=== PATIENT | male | born 1995 | race Caucasian/White ===

== ENCOUNTER 2017-08-30 10:45 | Emergency (ER) | payer BC ==
[2017-08-30] MEDS ORDERED: Ondansetron INJ* 2 MG/ML VIAL ONE (11:14)
[2017-08-30] MEDS ORDERED: Ondansetron INJ* 2 MG/ML VIAL IV ONE (11:28)
[2017-08-30] MEDS ORDERED: NS 0.9% 1000 ML* 1,000 ML IV ONE ×2 (11:28→12:30)
[2017-08-30 11:36] LABS: White Blood Count 8.3 10^3/ul (3.5-10.8)
[2017-08-30 11:38] LABS: Comments Flag Yes; Hematocrit 49 % (42-52); Hemoglobin 17.5 g/dl (14.0-18.0); Mean Corpuscular HGB Conc 36 g/dl (31-36); Mean Corpuscular Hemoglobin 33 pg (27-31); Mean Corpuscular Volume 91 fL (80-94); Mean Platelet Volume 9 um3 (7.4-10.4); Red Blood Count 5.38 10^6/ul (4.0-5.4); Red Cell Distribution Width 13 % (10.5-15)
[2017-08-30 11:47] LABS: BUN/Creatinine Ratio 19.4 (8-20); C Reactive Protein 3.28 mg/L (< 5.00); Calcium 10.2 mg/dL (8.6-10.3); EGFR African American 129.5 (>60); EGFR Non-African American 100.7 (>60); Globulin 3.1 g/dL (2-4); Potassium 3.7 mmol/L (3.5-5.0); Total Bilirubin 0.9 mg/dL (0.2-1.0); Total Protein 8.1 g/dL (6.4-8.9)
[2017-08-30] MEDS ORDERED: PROCHLORPERAZINE INJ 5 MG/ML 2 ML VIAL IV PRN (12:30)
[2017-08-30] MEDS ORDERED: LORazepam INJ* 2 MG/ML 1 ML VIAL IV ONE (13:42)
[2017-08-30 13:59] LABS: Urine Bacteria Absent (Absent); Urine Bilirubin Negative (Negative); Urine Glucose Negative (Negative); Urine Nitrite Negative (Negative)
[2017-08-30] MEDS ORDERED: Pantoprazole IV* 40 MG IV ONE (15:12)
--- NOTE | 2017-08-30 16:01 | RAD ---
INDICATION: ] Right upper quadrant pain. COMPARISON: Gallbladder sonogram January 21, 2016 TECHNIQUE: Longitudinal and transverse scans of the right upper quadrant were obtained. Doppler interrogation of the hepatic and portal venous system was performed. FINDINGS: Liver: The liver is normal in size and echogenicity. There are no focal masses. The liver measures 19.2 cm in cephalocaudal dimension. Vessels: There is normal hepatic and portal venous flow. Bile ducts: There is no evidence of intrahepatic or extrahepatic ductal dilatation. The common duct measures 0.5 cm. Gallbladder: The sonographic appearance of the gallbladder is normal. There is no evidence of cholelithiasis, thickening of the gallbladder wall, or pericholecystic fluid. Pancreas: The visualized pancreas appears normal Right kidney: The right kidney is normal in size and echogenicity. There are no masses or calculi. There is no evidence of hydronephrosis. The right kidney measures 12.7 x 6.9 x 6.0 cm. IVC and aorta: The aorta and superior vena cava appear normal. Fluid: There is no ascites. Other: None. IMPRESSION: Hepatomegaly with hepatic steatosis. Normal gallbladder, unchanged.
[2017-08-30 16:33] VITALS: BP 131/56
--- NOTE | 2017-08-30 17:39 | ED ---
Mackenzie Petit SooYoung, scribed for Andrew Marino MD on 08/30/17 at 1128 . Abdominal Pain/Male - HPI Summary HPI Summary: A 22 y/o M presents to ED with multiple episodes vomiting onset two days ago. Pt states feeling mildly improved yesterday, but returned to feeling bad this AM. Associated sx: diarrhea, decreased oral intake, abd pain described as cramping. Denies recent travel. He states he had been eating a lot of fatty, acidic foods. - History of Current Complaint Chief Complaint: EDAbdPain Stated Complaint: NAUSEA & VOMITING Time Seen by Provider: 08/30/17 11:23 Hx Obtained From: Patient Onset/Duration: Lasting Days - onset two days ago, Still Present Severity Initially: Moderate Severity Currently: Moderate Pain Intensity: 4 Pain Scale Used: 0-10 Numeric Location: Diffuse Character: Cramping Associated Signs And Symptoms: Positive: Vomiting, Diarrhea, Other - decreased oral intake - Allergies/Home Medications Allergies/Adverse Reactions: Allergies Allergy/AdvReac Type Severity Reaction Status Date / Time No Known Allergies Allergy Verified 08/30/17 10:53 PMH/Surg Hx/FS Hx/Imm Hx Previously Healthy: No Endocrine/Hematology History: Denies: Hx Diabetes, Hx Thyroid Disease Cardiovascular History: Denies: Hx Hypertension Respiratory History: Denies: Hx Asthma, Hx Chronic Obstructive Pulmonary Disease (COPD) GI History: Denies: Hx Ulcer Neurological History: Reports: Hx Seizures - On Depakote - Surgical History Surgery Procedure, Year, and Place: ACL reconstruction Infectious Disease History: No Infectious Disease History: Denies: Hx Hepatitis, Hx Human Immunodeficiency Virus (HIV), History Other Infectious Disease, Traveled Outside the [place] in Last 30 Days - Family History Known Family History: Positive: Cardiac Disease - FATHER, STENT, Diabetes - MATERNAL GM - Social History Occupation: Employed Full-time Lives: With Family Alcohol Use: Rare Hx Substance Use: Yes Substance Use Type: Reports: Marijuana Substance Use Comment - Amount & Last Used: alot recently Hx Tobacco Use: Yes Smoking Status (MU): Heavy Every Day Tobacco Smoker Type: Cigarettes Amount Used/How Often: 1/2 ppd Have You Smoked in the Last Year: Yes Review of Systems Negative: Cough Positive: Abdominal Pain, Vomiting, Diarrhea, Other - pos: decreased oral intake All Other Systems Reviewed And Are Negative: Yes Physical Exam - Summary Physical Exam Summary: The patient is well-nourished and in mild distress. Pt is actively retching at bedside. The skin is warm and dry and skin color reflects adequate perfusion. HEENT: The head is normocephalic and atraumatic. The pupils are equal and reactive. The conjunctivae are clear and without drainage. Nares are patent and without drainage. Mouth reveals moist mucous membranes and the throat is without erythema and exudate. The external ears are intact. The ear canals are patent and without drainage. The tympanic membranes are intact. Neck is supple with full range of motion and non-tender. There are no carotid bruits. There is no neck vein distension. Respiratory: Chest is non-tender. Lungs are clear to auscultation and breath sounds are symmetrical and equal. Cardiovascular: Heart is regular rate and rhythm. There is no murmur or rub auscultated. There is no peripheral edema and pulses are symmetrical and equal. Abdomen: The abdomen is soft and non-tender. There are normal bowel sounds heard in all four quadrants and there is no organomegaly palpated. Musculoskeletal: There is no back pain noted. Extremities are non-tender with full range of motion. There is good capillary refill. There is no peripheral edema or calf tenderness elicited. Neurological: Patient is alert and oriented to person, place and time. The patient has symmetrical motor strength in all four extremities. Cranial nerves are grossly intact. Deep tendon reflexes are symmetrical and equal in all four extremities. Psychiatric: The patient has an appropriate affect and does not exhibit any anxiety or depression. Triage Information Reviewed: Yes Vital Signs On Initial Exam: Initial Vitals Temp Pulse Resp BP Pulse Ox 97.8 F 58 18 144/89 100 08/30/17 10:50 08/30/17 10:50 08/30/17 10:50 08/30/17 10:50 08/30/17 10:50 Vital Signs Reviewed: Yes - [place] Coma Scale Coma Scale Total: 15 Diagnostics - Vital Signs Vital Signs Temp Pulse Resp BP Pulse Ox 08/30/17 11:14 82 99 08/30/17 11:13 141/88 08/30/17 10:50 97.8 F 58 18 144/89 100 - Laboratory Lab Results: Lab Results 08/30/17 08/30/17 08/30/17 Range/Units 11:20 11:20 11:20 WBC 8.3 (3.5-10.8) 10^3/ul RBC 5.38 (4.0-5.4) 10^6/ul Hgb 17.5 (14.0-18.0) g/dl Hct 49 (42-52) % MCV 91 (80-94) fL MCH 33 H (27-31) pg MCHC 36 (31-36) g/dl RDW 13 (10.5-15) % Plt Count 213 (150-450) 10^3/ul MPV 9 (7.4-10.4) um3 Neut % (Auto) 72.3 (38-83) % Lymph % (Auto) 19.0 L (25-47) % [place] % (Auto) 8.2 (1-9) % Eos % (Auto) 0.1 (0-6) % Baso % (Auto) 0.4 (0-2) % Absolute Neuts (auto) 6.0 (1.5-7.7) 10^3/ul Absolute Lymphs (auto) 1.6 (1.0-4.8) 10^3/ul Absolute Monos (auto) 0.7 (0-0.8) 10^3/ul Absolute Eos (auto) 0 (0-0.6) 10^3/ul Absolute Basos (auto) 0 (0-0.2) 10^3/ul Absolute Nucleated RBC 0 10^3/ul Nucleated RBC % 0 Sodium 136 (133-145) mmol/L Potassium 3.7 (3.5-5.0) mmol/L Chloride 102 (101-111) mmol/L Carbon Dioxide 24 (22-32) mmol/L Anion Gap 10 (2-11) mmol/L BUN 18 (6-24) mg/dL Creatinine 0.93 (0.67-1.17) mg/dL Est GFR ( Amer) 129.5 (>60) Est GFR (Non-Af Amer) 100.7 (>60) BUN/Creatinine Ratio 19.4 (8-20) Glucose 145 H (70-100) mg/dL Lactic Acid 2.2 H* (0.5-2.0) mmol/L Calcium 10.2 (8.6-10.3) mg/dL Total Bilirubin 0.90 (0.2-1.0) mg/dL AST 31 (13-39) U/L ALT 63 H (7-52) U/L Alkaline Phosphatase 42 (34-104) U/L C-Reactive Protein 3.28 (< 5.00) mg/L Total Protein 8.1 (6.4-8.9) g/dL Albumin 5.0 (3.2-5.2) g/dL Globulin 3.1 (2-4) g/dL Albumin/Globulin Ratio 1.6 (1-3) Lipase 31 (11.0-82.0) U/L Urine Color Urine Appearance Urine pH (5-9) Ur Specific [place] (1.010-1.030) Urine Protein (Negative) Urine Ketones (Negative) Urine Blood (Negative) Urine Nitrate (Negative) Urine Bilirubin (Negative) Urine Urobilinogen (Negative) Ur Leukocyte Esterase (Negative) Urine WBC (Auto) (Absent) Urine RBC (Auto) (Absent) Urine Bacteria (Absent) Urine Glucose (Negative) 08/30/17 Range/Units 13:45 WBC (3.5-10.8) 10^3/ul RBC (4.0-5.4) 10^6/ul Hgb (14.0-18.0) g/dl Hct (42-52) % MCV (80-94) fL MCH (27-31) pg MCHC (31-36) g/dl RDW (10.5-15) % Plt Count (150-450) 10^3/ul MPV (7.4-10.4) um3 Neut % (Auto) (38-83) % Lymph % (Auto) (25-47) % [place] % (Auto) (1-9) % Eos % (Auto) (0-6) % Baso % (Auto) (0-2) % Absolute Neuts (auto) (1.5-7.7) 10^3/ul Absolute Lymphs (auto) (1.0-4.8) 10^3/ul Absolute Monos (auto) (0-0.8) 10^3/ul Absolute Eos (auto) (0-0.6) 10^3/ul Absolute Basos (auto) (0-0.2) 10^3/ul Absolute Nucleated RBC 10^3/ul Nucleated RBC % Sodium (133-145) mmol/L Potassium (3.5-5.0) mmol/L Chloride (101-111) mmol/L Carbon Dioxide (22-32) mmol/L Anion Gap (2-11) mmol/L BUN (6-24) mg/dL Creatinine (0.67-1.17) mg/dL Est GFR ( Amer) (>60) Est GFR (Non-Af Amer) (>60) BUN/Creatinine Ratio (8-20) Glucose (70-100) mg/dL Lactic Acid (0.5-2.0) mmol/L Calcium (8.6-10.3) mg/dL Total Bilirubin (0.2-1.0) mg/dL AST (13-39) U/L ALT (7-52) U/L Alkaline Phosphatase (34-104) U/L C-Reactive Protein (< 5.00) mg/L Total Protein (6.4-8.9) g/dL Albumin (3.2-5.2) g/dL Globulin (2-4) g/dL Albumin/Globulin Ratio (1-3) Lipase (11.0-82.0) U/L Urine Color [place] Urine Appearance Cloudy Urine pH 7.0 (5-9) Ur Specific [place] 1.030 (1.010-1.030) Urine Protein 1+(30 mg/dl) H (Negative) Urine Ketones 2+ H (Negative) Urine Blood Negative (Negative) Urine Nitrate Negative (Negative) Urine Bilirubin Negative (Negative) Urine Urobilinogen Negative (Negative) Ur Leukocyte Esterase Negative (Negative) Urine WBC (Auto) Trace(0-5/hpf) (Absent) Urine RBC (Auto) 2+(6-10/hpf) H (Absent) Urine Bacteria Absent (Absent) Urine Glucose Negative (Negative) Result Diagrams: 08/30/17 11:20 08/30/17 11:20 Lab Statement: Any lab studies that have been ordered have been reviewed, and results considered in the medical decision making process. - Ultrasound No standard instances Ultrasound Interpretation: Positive (See Comments) - IMPRESSION: Hepatomegaly with hepatic steatosis. Normal gallbladder, unchanged. ED physician has reviewed this report and agrees. Ultrasound Interpretation Completed By: Radiologist Re-Evaluation - Re-Evaluation 1 Re-Evaluation Time: 15:10 Change: Unchanged Comment: After Zofran and Reglan medications, pt continues to retch. Pt dozing intermittently. 2 Re-Evaluation Time: 16:25 Change: Improved Comment: Discussing U/S results with pt and family. Abdominal Pain Fem Course/Dx - Course Course Of Treatment: Mr. Gusman presented with a couple days of N/V/D. It was bad on Thursday and then improved yesterday but got bad again today. His symptoms were hard to control here and ativan seemed to help the most. He was given IV NS and allowed to recuperate here. Eventually, he felt better and was D/C'd. - Diagnoses Provider Diagnoses: Gastroenteritis Discharge - Discharge Plan Condition: Stable Disposition: HOME Prescriptions: Ondansetron ODT TAB* [Zofran Odt TAB*] 4 mg PO Q6H PRN #20 tab.odt PRN Reason: Nausea/Vomiting Patient Education Materials: Ondansetron (By mouth), Gastroenteritis (ED) Referrals: Zak Santamaria MD [Primary Care Provider] - 2 Days Additional Instructions: Follow up with your primary care provider in 2-3 days. Please return to the ED if you experience new or worsening symptoms. The documentation as recorded by the Mackenzie rodriguez SooYoung accurately reflects the service I personally performed and the decisions made by me, Andrew Marino MD.
== END 2017-08-30 16:34 | disposition home or self-care (01) ==
LOC: ED 10:45
DX: R11.10 Vomiting, unspecified (principal); R19.7 Diarrhea, unspecified; F17.210 Nicotine dependence, cigarettes, uncomplicated; K52.9 Noninfective gastroenteritis and colitis, unspecified
CPT/HCPCS: 36415; 76705; 80053; 81003; 81015; 83605; 83690; 85025; 86140; 96374; 99283; J0780; J2060; J2405

== ENCOUNTER 2019-02-06 20:05 | Emergency (ER) | payer BC ==
--- NOTE | 2019-02-06 21:46 | ED ---
Abdominal Pain/Male - HPI Summary HPI Summary: A 24 y/o M presents to ED with severe vomiting onset 0615 yesterday. He says he ate a calzone late night before sleeping. He felt a little better as the day progressed, ate crackers. This morning, the vomiting returned, mostly bile. Associated sx: chills, mild diarrhea, intermittent epigastric abd pain described as burning. Denies: fever. No abd surgeries. PMHx: epilepsy. He takes Depakote 1000mg nightly. - History of Current Complaint Chief Complaint: EDNauseaVomitDiarrh Stated Complaint: VOMITING PER PT Time Seen by Provider: 02/06/19 21:41 Hx Obtained From: Patient, Family/Lead Ramp Service Man - father Onset/Duration: Gradual Onset, Lasting Days, Still Present Timing: Intermittent Severity Initially: Moderate Severity Currently: Moderate Pain Intensity: 7 Pain Scale Used: 0-10 Numeric Location: Epigastric Character: Burning - abd pain Associated Signs And Symptoms: Positive: Vomiting, Diarrhea, Other - pos: abd pain, chills. Negative: Fever - Allergies/Home Medications Allergies/Adverse Reactions: Allergies Allergy/AdvReac Type Severity Reaction Status Date / Time No Known Allergies Allergy Verified 02/06/19 20:07 PMH/Surg Hx/FS Hx/Imm Hx Previously Healthy: Yes Endocrine/Hematology History: Denies: Hx Diabetes, Hx Thyroid Disease Cardiovascular History: Denies: Hx Hypertension Respiratory History: Denies: Hx Asthma, Hx Chronic Obstructive Pulmonary Disease (COPD) GI History: Denies: Hx Ulcer Neurological History: Reports: Hx Seizures - On Depakote - Surgical History Surgery Procedure, Year, and Place: ACL reconstruction Infectious Disease History: No Infectious Disease History: Denies: Hx Hepatitis, Hx Human Immunodeficiency Virus (HIV), History Other Infectious Disease, Traveled Outside the [place] in Last 30 Days - Family History Known Family History: Positive: Cardiac Disease - FATHER, STENT, Diabetes - MATERNAL GM - Social History Occupation: Employed Full-time Lives: With Family Alcohol Use: Rare Hx Substance Use: Yes Substance Use Type: Reports: Marijuana Substance Use Comment - Amount & Last Used: alot recently Hx Tobacco Use: Yes Smoking Status (MU): Heavy Every Day Tobacco Smoker Type: Cigarettes Amount Used/How Often: 1/2 ppd Have You Smoked in the Last Year: Yes Review of Systems Positive: Chills. Negative: Fever Positive: Abdominal Pain, Vomiting, Diarrhea All Other Systems Reviewed And Are Negative: Yes Physical Exam - Summary Physical Exam Summary: Appearance: Well-appearing, Well-nourished, lying in bed comfortably Skin: Warm, dry, no obvious rash Eyes: sclera anicteric, no conjunctival pallor ENT: mucous membranes moist, pharynx appears normal Neck: Supple, nontender Respiratory: Clear to auscultation, no signs of respiratory distress Cardiovascular: Normal S1, S2. No murmurs. Normal distal pulses in tibial and radial bilaterally. Abdomen: Soft, normal active bowel sounds present, Minimal generalized tenderness, no guarding, no rebound Musculoskeletal: Normal, Strength/ROM Intact Neurological: A&Ox3, awake and alert, mentation is normal, speech is fluent and appropriate Psychiatric: affect is normal, does not appear anxious or depressed Triage Information Reviewed: Yes Vital Signs On Initial Exam: Initial Vitals Temp Pulse Resp BP Pulse Ox 99.0 F 67 16 124/67 97 02/06/19 20:06 02/06/19 20:06 02/06/19 20:06 02/06/19 20:06 02/06/19 20:06 Vital Signs Reviewed: Yes Diagnostics - Vital Signs Vital Signs Temp Pulse Resp BP Pulse Ox 02/06/19 20:06 99.0 F 67 16 124/67 97 - Laboratory Result Diagrams: 02/06/19 22:15 02/06/19 22:15 Lab Statement: Any lab studies that have been ordered have been reviewed, and results considered in the medical decision making process. Re-Evaluation - Re-Evaluation 1 Re-Evaluation Time: 00:10 Change: Improved Comment: Pt is feeling better, tolerating PO. Abdominal Pain Male Course/Dx - Course Course Of Treatment: Pt is a 24 y/o M presenting with diffuse abd pain, severe vomiting, diarrhea and chills onset 0615 yesterday. No prior abd surgeries. PMHx : epilepsy, otherwise healthy. Pt is feeling improved after GI cocktail. He is tolerating PO upon re-eval. Will discharge pt home. - Diagnoses Provider Diagnoses: Gastroenteritis Discharge - Sign-Out/Discharge Documenting (check all that apply): Patient Departure - DC Patient Received Moderate/Deep Sedation with Procedure: No - Discharge Plan Condition: Improved Disposition: HOME Prescriptions: Ondansetron ODT TAB* [Zofran 4 MG Odt TAB*] 8 mg PO Q6H PRN #12 tab.odt PRN Reason: Vomiting Patient Education Materials: Gastroenteritis (ED) Referrals: Zak Santamaria MD [Primary Care Provider] - 3 Days (if not improving) - Billing Disposition and Condition Condition: IMPROVED Disposition: Home - Attestation Statements Document Initiated by Shefalie: Yes Documenting Scribe: Noni Mann Provider For Whom Keely is Documenting (Include Credential): Dr. Andrew Gamboa MD Scribe Attestation: Noni Petit scribed for Dr. Andrew Gamboa MD on 02/07/19 at 0247. Scribe Documentation Reviewed: Yes Provider Attestation: The documentation as recorded by the Noni rodriguez accurately reflects the service I personally performed and the decisions made by me, Dr. Andrew Gamboa MD Status of Scribe Document: Viewed
[2019-02-06] MEDS ORDERED: Lidocaine 2% VISCOUS* 15 ML UDC PO ONE (21:47)
[2019-02-06] MEDS ORDERED: Ondansetron INJ* 2 MG/ML VIAL IV ONE (21:47)
[2019-02-06] MEDS ORDERED: NS 0.9% 1000 ML** 2,000 ML IV ONE (21:47)
[2019-02-06] MEDS ORDERED: Al Hydrox/Mg Hydrox/Simet LIQ* 30 ML UDC PO ONE (21:47)
[2019-02-06 22:21] LABS: ABS Basophils 0 10^3/ul (0-0.2); ABS Eosinophils 0 10^3/ul (0-0.6); ABS Lymphocytes 1.7 10^3/ul (1.0-4.8); ABS Nucleated RBC 0 10^3/ul; Eosinophil % 0.3 %; Hematocrit 48 % (36-46); Mean Corpuscular HGB Conc 35 g/dL (31-36); Mean Corpuscular Hemoglobin 32 pg (27-31); Mean Corpuscular Volume 90 fL (80-94); Mean Platelet Volume 8.9 fL (7.4-10.4); Nucleated Red Blood Cells % 0; Platelet Count 213 10^3/uL (150-450); Red Blood Count 5.35 10^6 /uL (4.18-5.48); Red Cell Distribution Width 14 % (10.5-15); White Blood Count 7.7 10^3/uL (3.5-10.8)
[2019-02-06 22:37] LABS: Albumin 4.5 g/dL (3.2-5.2); Albumin/Globulin Ratio 1.7 (1-3); BUN/Creatinine Ratio 13.7 (8-20); Calcium 9.4 mg/dL (8.6-10.3); EGFR African American 116.9 (>60); EGFR Non-African American 96.6 (>60); Globulin 2.6 g/dL (2-4); Potassium 3.4 mmol/L (3.5-5.0); Total Bilirubin 0.8 mg/dL (0.2-1.0); Total Protein 7.1 g/dL (6.4-8.9)
[2019-02-07 00:20] VITALS: BP 103/44
== END 2019-02-07 00:19 | disposition home or self-care (01) ==
LOC: ED 20:05
DX: K52.9 Noninfective gastroenteritis and colitis, unspecified (principal); F17.210 Nicotine dependence, cigarettes, uncomplicated
CPT/HCPCS: 36415; 80053; 83690; 85025; 96361; 96374; 99283; A9270-GY; J2405

== ENCOUNTER 2019-02-07 09:31 | Emergency (ER) | payer BC ==
[2019-02-07] MEDS ORDERED: Ondansetron ODT TAB* 4 MG SL ONE (10:01)
[2019-02-07] MEDS ORDERED: Al Hydrox/Mg Hydrox/Simet LIQ* 30 ML UDC PO ONE (10:11)
[2019-02-07] MEDS ORDERED: NS 0.9% 1000 ML** 1,000 ML IV ONE (10:46)
[2019-02-07] MEDS ORDERED: Metoclopramide IV* 5 MG/ML 2 ML VIAL IV ONE (10:46)
[2019-02-07] MEDS ORDERED: Famotidine IV* 10 MG/ML 2 ML (20 mg) IV SLOW PU ONE (10:46)
[2019-02-07] MEDS ORDERED: Lidocaine 2% VISCOUS* 15 ML UDC PO ONE (10:46)
--- NOTE | 2019-02-07 10:55 | ED ---
Nausea/Vomiting/Diarrhea HPI - HPI Summary HPI Summary: Patient is a 24-year-old male with no past significant medical history presenting to the ED with midepigastric pain, nausea, vomiting and 1 episode diarrhea yesterday. He was seen in the ED last night, labs were obtained and he was given a "GI cocktail." He states after this he felt improved and was able to be discharged home. He has had 2 other episodes of the same, stating last fall and as well as 2 years ago needing to come to the ED for IV fluids and the "GI cocktail." He has not seen a GI specialist for this. He states he had one episode of diarrhea, but has not had this since. He denies any abdominal pain otherwise. He denies any CP or SOB. Denies any cardiac history. 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 He denies any fevers, sweats, chills. - History of Current Complaint Chief Complaint: EDNauseaVomitDiarrh Stated Complaint: NAUSEA/VOMITING PER PT Time Seen by Provider: 02/07/19 09:53 Hx Obtained From: Patient Onset/Duration: Sudden Onset Timing: Constant Severity Initially: Mild Severity Currently: Mild Pain Intensity: 7 Pain Scale Used: 0-10 Numeric Location: Other - discrete at midepigastric region Character: Burning Aggravating Factor(s): Nothing Alleviating Factor(s): Nothing Vomiting Frequency: Every 15-60 minutes Nausea/Vomiting Duration: 0-12 hours Vomiting Characteristics: Bilious Diarrhea Presence: Yes Diarrhea Frequency: Other - once - Risk Factors Influenza Risk Factors: Negative - Allergies/Home Medications Allergies/Adverse Reactions: Allergies Allergy/AdvReac Type Severity Reaction Status Date / Time No Known Allergies Allergy Verified 02/07/19 09:36 PMH/Surg Hx/FS Hx/Imm Hx Previously Healthy: Yes Endocrine/Hematology History: Denies: Hx Diabetes, Hx Thyroid Disease Cardiovascular History: Denies: Hx Hypertension Respiratory History: Denies: Hx Asthma, Hx Chronic Obstructive Pulmonary Disease (COPD) GI History: Denies: Hx Ulcer Neurological History: Reports: Hx Seizures - On Depakote - Surgical History Surgery Procedure, Year, and Place: ACL reconstruction - Immunization History Hx Pertussis Vaccination: No Immunizations Up to Date: Yes Infectious Disease History: No Infectious Disease History: Denies: Hx Hepatitis, Hx Human Immunodeficiency Virus (HIV), History Other Infectious Disease, Traveled Outside the [place] in Last 30 Days - Family History Known Family History: Positive: None, Cardiac Disease - FATHER, STENT, Diabetes - MATERNAL GM - Social History Occupation: Employed Full-time Lives: With Family Alcohol Use: Occasionally Hx Substance Use: Yes Substance Use Type: Reports: Marijuana Substance Use Comment - Amount & Last Used: alot recently; smoked 4 hours ago. Hx Tobacco Use: Yes Smoking Status (MU): Heavy Every Day Tobacco Smoker Type: Cigarettes Amount Used/How Often: 1/2 ppd Have You Smoked in the Last Year: Yes Review of Systems Constitutional: Negative Negative: Fever, Chills, Fatigue, Skin Diaphoresis Negative: Epistaxis, Dental Pain, Sore Throat, Ear Ache, Nasal Discharge Negative: Palpitations, Chest Pain Negative: Shortness Of Breath, Cough Positive: Abdominal Pain - midepigastric region which is nonradiating, Vomiting , Diarrhea, Nausea Genitourinary: Negative Positive: no symptoms reported, see HPI Skin: Negative Neurological: Negative All Other Systems Reviewed And Are Negative: Yes Physical Exam Triage Information Reviewed: Yes Vital Signs On Initial Exam: Initial Vitals Temp Pulse Resp BP Pulse Ox 98.5 F 73 18 138/76 97 02/07/19 09:34 02/07/19 09:34 02/07/19 09:34 02/07/19 09:34 02/07/19 09:34 Vital Signs Reviewed: Yes Appearance: Positive: Well-Appearing, Well-Nourished Skin: Positive: Warm, Skin Color Reflects Adequate Perfusion Head/Face: Positive: Normal Head/Face Inspection Eyes: Positive: IJEOMA, Conjunctiva Clear Neck: Positive: Supple, No Lymphadenopathy Respiratory/Lung Sounds: Positive: Clear to Auscultation, Breath Sounds Present Cardiovascular: Positive: RRR, Pulses are Symmetrical in both Upper and Lower Extremities Abdomen Description: Positive: Other: - Tenderness to the epigastric region Musculoskeletal: Positive: Strength/ROM Intact Neurological: Positive: Normal, Sensory/Motor Intact, Alert, Oriented to Person Place, Time, Speech Normal Psychiatric: Positive: Affect/Mood Appropriate Diagnostics - Vital Signs Vital Signs Temp Pulse Resp BP Pulse Ox 02/07/19 09:34 98.5 F 73 18 138/76 97 - Laboratory Lab Statement: Any lab studies that have been ordered have been reviewed, and results considered in the medical decision making process. Naus/Vom/Diarrhea Course/Dx - Course Course Of Treatment: During the questioning the patient is evaluated for midepigastric pain, nausea, vomiting and one episode of diarrhea. Patient states he has had this in the past, most recently 2 in the fall and previously before that one year ago. He has been seen in the ED all 3 times for IV fluids and a "GI cocktail," which relieves his symptoms. He denies any CP or SOB. He states he is otherwise healthy and denies any other concerns. Smokes marijuana all day, every day. Denies any alcohol use. Last night while in the ED, labs were obtained, he was given a famotidine, lidocaine viscous, Zofran IV all with good relief. He is requesting another IV at this time with more fluids as he continues to have nausea and vomiting. He states this is mostly bile and is yellow in color. Patient is given viscous lidocaine, Zofran by mouth which did not improve his symptoms. He is subsequently given 1 L fluids, famotidine and Reglan IV. His labs were stable from last evening so a redraw of labs was not obtained.He is feeling better after Reglan. I have advised him to follow-up with GI specialist and he is given famotidine, Maalox and Reglan as rx. He is okay for discharge at this time. - Differential Dx/Diagnosis Provider Diagnosis: Epigastric pain Condition At Discharge: Stable Discharge - Sign-Out/Discharge Documenting (check all that apply): Patient Departure Patient Received Moderate/Deep Sedation with Procedure: No - Discharge Plan Condition: Stable Disposition: HOME Prescriptions: Al Hydrox/Mg Hydrox/Simet LIQ* [Maalox Plus*] 30 ml PO Q4H PRN #1 bottle PRN Reason: Pain Metoclopramide TAB* [Reglan TAB*] 10 mg PO Q6H #12 tab Omeprazole 40 mg PO DAILY #30 cap Patient Education Materials: Gastritis (ED), Diet for Stomach Ulcers and Gastritis (ED), Epigastric Pain (ED) Referrals: Zak Santamaria MD [Primary Care Provider] - Additional Instructions: Maalox plus every 4 hours as needed for epigastric discomfort Omeprazole, 1 tab daily until gone Please follow up with the GI specialist in the next month Return to the ED if you continue to be unable to keep anything down despite the Reglan and Zofran as prescribed Eat a bland diet at this time including toast, applesauce, bananas, chicken noodle soup, rice Drink plenty of water and Gatorade Cigarettes or use marijuana as this worsens the symptoms Do not eat immediately before bed or before lying flat - Billing Disposition and Condition Condition: STABLE Disposition: Home
[2019-02-07 13:45] VITALS: BP 153/82
== END 2019-02-07 13:45 | disposition home or self-care (01) ==
LOC: ED 09:31
DX: R10.13 Epigastric pain (principal); F17.210 Nicotine dependence, cigarettes, uncomplicated
CPT/HCPCS: 96361; 96374; 96375; 99283; A9270-GY; J2765

== ENCOUNTER 2019-02-08 12:56 | Emergency (ER) | payer BC ==
[2019-02-08 14:13] LABS: ABS Basophils 0 10^3/ul (0-0.2); ABS Eosinophils 0 10^3/ul (0-0.6); ABS Lymphocytes 1.7 10^3/ul (1.0-4.8); ABS Monocytes 0.6 10^3/ul (0-0.8); ABS Neutrophils 5.8 10^3/ul (1.5-7.7); ABS Nucleated RBC 0 10^3/ul; Eosinophil % 0 %; Hematocrit 47 % (36-46); Hemoglobin 16.7 g/dL (14.0-18.0); Lymphocyte % 21.1 %; Mean Corpuscular HGB Conc 35 g/dL (31-36); Mean Corpuscular Hemoglobin 32 pg (27-31); Mean Corpuscular Volume 90 fL (80-94); Mean Platelet Volume 9.4 fL (7.4-10.4); Nucleated Red Blood Cells % 0.1; Platelet Count 216 10^3/uL (150-450); Red Blood Count 5.27 10^6 /uL (4.18-5.48); Red Cell Distribution Width 13 % (10.5-15); White Blood Count 8.1 10^3/uL (3.5-10.8)
[2019-02-08 15:28] LABS: Albumin 4.6 g/dL (3.2-5.2); Anion Gap 12 mmol/L (2-11); CO2 Carbon Dioxide 21 mmol/L (22-32); Calcium 8.9 mg/dL (8.6-10.3); Chloride 106 mmol/L (101-111); Potassium 3.6 mmol/L (3.5-5.0); Sodium 139 mmol/L (135-145)
[2019-02-08 15:34] LABS: ALT 64 U/L (7-52); AST 26 U/L (13-39); Albumin/Globulin Ratio 1.8 (1-3); Alkaline Phosphatase 36 U/L (34-104); BUN/Creatinine Ratio 11.5 (8-20); Blood Urea Nitrogen 10 mg/dL (6-24); C Reactive Protein < 1.00 mg/L (<8.01); EGFR African American 129.4 (>60); EGFR Non-African American 106.9 (>60); Globulin 2.6 g/dL (2-4); Glucose 125 mg/dL (70-100); Total Protein 7.2 g/dL (6.4-8.9)
--- NOTE | 2019-02-08 17:41 | ED ---
GI/ HPI - HPI Summary HPI Summary: Patient is a 24 y/o male who presents to the ED c/o N/V. 3 days ago he began to have constant N/V and is unable to tolerate PO. He also c/o constipation, lightheadedness, and epigastric pain described as burning. Patient is mostly dry heaving now. He denies any diarrhea. Pain is rated a 9/10 in severity. He has been here the past two days for his symptoms and was diagnosed with gastroenteritis and epigastric pain. Yesterday he was given a prescription for Maalox, Reglan, and Zofran. Patient has a hx of recurrent N/V, and his last episode was about 8 months ago. As per medical records, he smokes marijuana daily. Pt's mother has a hx of nausea and vomiting as well, and was diagnosed with GERD and treated with Omeprazole and Carafate. - History of Current Complaint Chief Complaint: EDAbdPain Time Seen by Provider: 02/08/19 16:40 Stated Complaint: VOMITING/ABD PAIN PER PT Hx Obtained From: Patient Onset/Duration: Started Days Ago - 3, Still Present Timing: Constant Current Severity: Severe Pain Intensity: 9 Location of Pain: Epigastric Pain Characteristics: Burning Associated Signs and Symptoms: Positive: Nausea, Vomiting, Constipation, Lightheadedness, Abdominal Pain. Negative: Diarrhea Aggravating Factor(s): Nothing Alleviating Factor(s): Nothing - Allergy/Home Medications Allergies/Adverse Reactions: Allergies Allergy/AdvReac Type Severity Reaction Status Date / Time No Known Allergies Allergy Verified 02/08/19 13:10 PMH/Surg Hx/FS Hx/Imm Hx Endocrine/Hematology History: Denies: Hx Diabetes, Hx Thyroid Disease Cardiovascular History: Denies: Hx Hypertension Respiratory History: Denies: Hx Asthma, Hx Chronic Obstructive Pulmonary Disease (COPD) GI History: Denies: Hx Ulcer Neurological History: Reports: Hx Seizures - On Depakote - Surgical History Surgery Procedure, Year, and Place: ACL reconstruction Infectious Disease History: No Infectious Disease History: Denies: Hx Hepatitis, Hx Human Immunodeficiency Virus (HIV), History Other Infectious Disease, Traveled Outside the [place] in Last 30 Days - Family History Known Family History: Positive: Cardiac Disease - FATHER, STENT, Diabetes - MATERNAL GM - Social History Alcohol Use: Occasionally Hx Substance Use: Yes Substance Use Type: Reports: Marijuana Substance Use Comment - Amount & Last Used: alot recently; smoked 4 hours ago. Hx Tobacco Use: Yes Smoking Status (MU): Heavy Every Day Tobacco Smoker Type: Cigarettes Amount Used/How Often: 1/2 ppd Have You Smoked in the Last Year: Yes Review of Systems Positive: Abdominal Pain - epigastric, Vomiting, Nausea, Other - constipation. Negative: Diarrhea Neurological: Other - Lightheadedness All Other Systems Reviewed And Are Negative: Yes Physical Exam - Summary Physical Exam Summary: Constitutional: Well-developed, Well-nourished, Alert. (-) Distressed Skin: Warm, Dry HENT: Normocephalic; Atraumatic; Poor dentition Eyes: Conjunctiva normal Neck: Musculoskeletal ROM normal neck. (-) JVD, (-) Stridor, (-) Tracheal deviation Cardio: Rhythm regular, rate normal, Heart sounds normal; Intact distal pulses; The pedal pulses are 2+ and symmetric. Radial pulses are 2+ and symmetric. (-) Murmur Pulmonary/Chest wall: Effort normal. (-) Respiratory distress, (-) Wheezes, (-) Rales Abd: Soft, (+) Diffuse mild tenderness, (-) Distension, (-) Guarding, (-) Rebound Musculoskeletal: (-) Edema Lymph: (-) Cervical adenopathy Neuro: Alert, Oriented x3 Psych: Mood and affect Normal Triage Information Reviewed: Yes Vital Signs On Initial Exam: Initial Vitals Temp Pulse Resp BP Pulse Ox 98.5 F 58 16 149/116 98 02/08/19 12:59 02/08/19 12:59 02/08/19 12:59 02/08/19 12:59 02/08/19 12:59 Vital Signs Reviewed: Yes Diagnostics - Vital Signs Vital Signs Temp Pulse Resp BP Pulse Ox 02/08/19 14:59 97.9 F 54 20 163/94 97 02/08/19 12:59 98.5 F 58 16 149/116 98 - Laboratory Lab Results: Lab Results 02/08/19 02/08/19 02/08/19 Range/Units 13:52 13:52 13:52 WBC 8.1 (3.5-10.8) 10^3/uL RBC 5.27 (4.18-5.48) 10^6 /uL Hgb 16.7 (14.0-18.0) g/dL Hct 47 H (36-46) % MCV 90 (80-94) fL MCH 32 H (27-31) pg MCHC 35 (31-36) g/dL RDW 13 (10.5-15) % Plt Count 216 (150-450) 10^3/uL MPV 9.4 (7.4-10.4) fL Neut % (Auto) 71.1 % Lymph % (Auto) 21.1 % Esmeralda % (Auto) 7.6 % Eos % (Auto) 0 % Baso % (Auto) 0.2 % Absolute Neuts (auto) 5.8 (1.5-7.7) 10^3/ul Absolute Lymphs (auto) 1.7 (1.0-4.8) 10^3/ul Absolute Monos (auto) 0.6 (0-0.8) 10^3/ul Absolute Eos (auto) 0 (0-0.6) 10^3/ul Absolute Basos (auto) 0 (0-0.2) 10^3/ul Absolute Nucleated RBC 0 10^3/ul Nucleated RBC % 0.1 Sodium 139 (135-145) mmol/L Potassium 3.6 (3.5-5.0) mmol/L Chloride 106 (101-111) mmol/L Carbon Dioxide 21 L (22-32) mmol/L Anion Gap 12 H (2-11) mmol/L BUN 10 (6-24) mg/dL Creatinine 0.87 (0.67-1.17) mg/dL Est GFR ( Amer) 129.4 (>60) Est GFR (Non-Af Amer) 106.9 (>60) BUN/Creatinine Ratio 11.5 (8-20) Glucose 125 H (70-100) mg/dL Lactic Acid 0.8 (0.5-2.0) mmol/L Calcium 8.9 (8.6-10.3) mg/dL Total Bilirubin 0.80 (0.2-1.0) mg/dL AST 26 (13-39) U/L ALT 64 H (7-52) U/L Alkaline Phosphatase 36 (34-104) U/L C-Reactive Protein < 1.00 (<8.01) mg/L Total Protein 7.2 (6.4-8.9) g/dL Albumin 4.6 (3.2-5.2) g/dL Globulin 2.6 (2-4) g/dL Albumin/Globulin Ratio 1.8 (1-3) Lipase 40 (11.0-82.0) U/L Result Diagrams: 02/08/19 13:52 02/08/19 13:52 Lab Statement: Any lab studies that have been ordered have been reviewed, and results considered in the medical decision making process. Re-Evaluation - Re-Evaluation First Eval Re-Evaluation Time: 21:20 Change: Improved Comment: Pt feels much better. GIGU Course/Dx - Course Course Of Treatment: Patient is a 24 y/o male who presents to the ED c/o N/V, constipation, lightheadedness, and epigastric pain described as burning. Patient has a hx of recurrent N/V, and his last episode was about 8 months ago. As per medical records, he smokes marijuana daily. Pt's mother has a hx of nausea and vomiting as well, and was diagnosed with GERD and treated with Omeprazole and Carafate. A physical exam revealed diffuse mild tenderness and poor dentition. In the course patient was given Haldol, Phenergan, and fluids. Bloodwork without abnormalities. Final dx of nausea and vomiting. Patient is discharged home. He was instructed to replace Reglan with Phenergan and follow up with GI. Patient is agreeable with this plan. - Diagnoses Provider Diagnoses: Nausea and vomiting Discharge - Sign-Out/Discharge Documenting (check all that apply): Patient Departure - Discharge Patient Received Moderate/Deep Sedation with Procedure: No - Discharge Plan Condition: Improved Disposition: HOME Prescriptions: Promethazine SUPP* [Phenergan Supp*] 25 mg MN Q4H PRN #20 supp PRN Reason: Nausea Promethazine TAB* [Phenergan TAB*] 25 mg PO Q6H PRN #20 tab PRN Reason: Nausea Patient Education Materials: Acute Nausea and Vomiting (ED) Print Language: FAROESE Referrals: Zak Santamaria MD [Primary Care Provider] - - Billing Disposition and Condition Condition: IMPROVED Disposition: Home - Attestation Statements Document Initiated by Scribe: Yes Documenting Scribe: Urszula Alarcon Provider For Whom Scribe is Documenting (Include Credential): Florina Mckinney MD Scribe Attestation: Urszula Petit scribed for Florina Kim MD on 02/08/19 at 2248. Scribe Documentation Reviewed: Yes Provider Attestation: The documentation as recorded by the scribe, Urszula Alarcon accurately reflects the service I personally performed and the decisions made by me, Florina Mckinney MD Status of Scribe Document: Viewed
[2019-02-08] MEDS ORDERED: Haloperidol INJ IV/IM* 5 MG/ML AMP IM ONE (18:00)
[2019-02-08] MEDS ORDERED: Haloperidol INJ IV/IM* 5 MG/ML AMP IV SLOW PU ONE (18:28)
[2019-02-08] MEDS ORDERED: NS 0.9% 1000 ML** 1,000 ML IV ONE (18:32)
[2019-02-08] MEDS ORDERED: Promethazine TAB* 25 MG PO ONE (21:24)
[2019-02-08 21:47] VITALS: BP 144/88
== END 2019-02-08 21:45 | disposition home or self-care (01) ==
LOC: ED 12:56
DX: R11.2 Nausea with vomiting, unspecified (principal); K21.9 Gastro-esophageal reflux disease without esophagitis; F17.210 Nicotine dependence, cigarettes, uncomplicated
CPT/HCPCS: 36415; 80053; 83605; 83690; 85025; 86140; 96361; 96374; 99283; J1630

== ENCOUNTER 2019-04-22 12:27 | Emergency (ER) | payer BC ==
[2019-04-22 12:46] VITALS: BP 111/61
--- NOTE | 2019-04-22 13:59 | UC ---
Ear Complaint HPI - HPI Summary HPI Summary: right ringing in ear intermittently x >1 week muffled went swimming yesterday now can't hear - History of Current Complaint Chief Complaint: UCEar Stated Complaint: RINGING IN EAR, AND EAR ACHE Time Seen by Provider: 04/22/19 13:48 Hx Obtained From: Patient Onset/Duration: Gradual Onset, Worse Since - yesterday Severity Initially: Mild Severity Currently: Mild Pain Intensity: 1 Associated Signs/Symptoms: Positive: Hearing Loss Related History: Other (Noted In Comments) - hx cerumen impaction - Allergies/Home Medications Allergies/Adverse Reactions: Allergies Allergy/AdvReac Type Severity Reaction Status Date / Time No Known Allergies Allergy Verified 04/22/19 12:46 PMH/Surg Hx/FS Hx/Imm Hx Previously Healthy: Yes - Surgical History Surgical History: Yes Surgery Procedure, Year, and Place: ACL reconstruction - Family History Known Family History: Positive: Cardiac Disease - FATHER, STENT, Diabetes - MATERNAL GM - Social History Alcohol Use: Rare Substance Use Type: Cocaine, Marijuana Substance Use Comment - Amount & Last Used: alot recently; smoked 4 hours ago. Smoking Status (MU): Heavy Every Day Tobacco Smoker Type: Cigarettes Amount Used/How Often: 1/2 ppd Have You Smoked in the Last Year: Yes Review of Systems All Other Systems Reviewed And Are Negative: Yes Constitutional: Positive: Negative Skin: Positive: Negative Eyes: Positive: Negative ENT: Positive: Ear Ache Respiratory: Positive: Negative Cardiovascular: Positive: Negative Gastrointestinal: Positive: Negative Genitourinary: Positive: Negative Motor: Positive: Negative Neurovascular: Positive: Negative Musculoskeletal: Positive: Negative Neurological: Positive: Negative Psychological: Positive: Negative Physical Exam Triage Information Reviewed: Yes Appearance: Well-Appearing, No Pain Distress, Well-Nourished Vital Signs: Initial Vital Signs Temp 98.4 F 04/22/19 12:42 Pulse 57 04/22/19 12:42 Resp 16 04/22/19 12:42 BP 111/61 04/22/19 12:42 Pulse Ox 99 04/22/19 12:42 Vital Signs Reviewed: Yes Eyes: Positive: Conjunctiva Clear ENT: Positive: TMs normal - unable to vis right TM due to cerumen. Negative: Hearing grossly normal, Nasal congestion, Nasal drainage, Trismus, Muffled voice , Hoarse voice, Uvula midline Neck: Positive: Supple, Nontender, No Lymphadenopathy Respiratory: Positive: Lungs clear, Normal breath sounds, No respiratory distress, No accessory muscle use Cardiovascular: Positive: RRR, No Murmur Musculoskeletal: Positive: No Edema Neurological: Positive: Alert Psychological Exam: Normal Skin Exam: Normal Ear Complaint Course/Dx - Course Course Of Treatment: after flush right TM visualized and normal hearing has normalized - Differential Dx/Diagnosis Provider Diagnosis: Impacted cerumen of right ear Discharge - Sign-Out/Discharge Documenting (check all that apply): Patient Departure All imaging exams completed and their final reports reviewed: Yes - Discharge Plan Condition: Stable Disposition: HOME Patient Education Materials: Cerumen Impaction (ED) Referrals: Zak Santamaria MD [Primary Care Provider] - If Needed - Billing Disposition and Condition Condition: STABLE Disposition: Home
== END 2019-04-22 14:42 | disposition home or self-care (01) ==
LOC: UCEAST 12:27
DX: H61.21 Impacted cerumen, right ear (principal); F17.210 Nicotine dependence, cigarettes, uncomplicated
CPT/HCPCS: 99212; G0463

== ENCOUNTER 2019-07-23 16:24 | Emergency (ER) | payer BC ==
--- NOTE | 2019-07-23 16:57 | ED ---
Neurological HPI - HPI Summary HPI Summary: The patient is a 24 y/o M presenting to [facility] accompanied by father with a chief complaint of possible seizure occurring around 1400 today. His father reports that the patient came home around 1400 and had gone to sleep on the couch shortly after. While the patient was sleeping, his father went upstairs but then heard the patient yelling and went back downstairs to find him tangled in the blankets with a rocking motion. After the patient calmed down, his father went back upstairs, and the patient went upstairs as well, where he seemed confused. The patient reports sleep disturbance recently, and he is unsure if he took his Depakote 1000mg last night, although he believes he did and states he has been compliant with use. He remembers driving home from work, which he left early, but he doesnt remember much after that until now. Currently, his symptoms are rated 0/10 in severity as he is alert and oriented in the ED. They note that this is a similar presentation to the clonic-seizures the patient has experienced in the past. His last seizure was about 3.5 years ago. Neu[address]ist is Dr. Franklin. PMHx: seizures. Heavy every day cigarette smoker, rare EtOH, marijuana and cocaine use. Medications reviewed. Allergies noted. - History of Current Complaint Chief Complaint: EDSeizure Stated Complaint: CONFUSION/POSS SEIZURE PER PT Time Seen by Provider: 07/23/19 16:46 Hx Obtained From: Patient, Family/Community Arts Officer - father Onset/Duration: Started hours ago - 1400, Resolved Onset Severity: Moderate Current Severity: None Seizure Severity: Moderate Number of Seizures: 1 Pain Intensity: 0 Pain Scale Used: 0-10 Numeric Character: Confusion Aggravating: Unknown Alleviating: Spontanious Resolution Associated Signs and Symptoms: Positive: Confusion, Seizure - body rocking Related Hx: Seizure - Allergy/Home Medications Allergies/Adverse Reactions: Allergies Allergy/AdvReac Type Severity Reaction Status Date / Time No Known Allergies Allergy Verified 07/23/19 16:32 PMH/Surg Hx/FS Hx/Imm Hx Endocrine/Hematology History: Denies: Hx Diabetes, Hx Thyroid Disease Cardiovascular History: Denies: Hx Hypercholesterolemia, Hx Hypertension Respiratory History: Denies: Hx Asthma, Hx Chronic Obstructive Pulmonary Disease (COPD) GI History: Denies: Hx Ulcer Neurological History: Reports: Hx Seizures - On Depakote - Surgical History Surgical History: Yes Surgery Procedure, Year, and Place: ACL reconstruction Infectious Disease History: No Infectious Disease History: Denies: Hx Hepatitis, Hx Human Immunodeficiency Virus (HIV), History Other Infectious Disease, Traveled Outside the [place] in Last 30 Days - Family History Known Family History: Positive: Cardiac Disease - FATHER, STENT, Diabetes - MATERNAL GM - Social History Alcohol Use: Rare Hx Substance Use: Yes Substance Use Type: Reports: Cocaine, Marijuana Substance Use Comment - Amount & Last Used: alot recently; smoked 4 hours ago. Hx Tobacco Use: Yes Smoking Status (MU): Heavy Every Day Tobacco Smoker Type: Cigarettes Amount Used/How Often: 1/2 ppd Have You Smoked in the Last Year: Yes Review of Systems Neurological: Other - confusion, forgetfulness, seizure-like body rocking All Other Systems Reviewed And Are Negative: Yes Physical Exam - Summary Physical Exam Summary: VITAL SIGNS: Reviewed. GENERAL: Patient is a well-developed and nourished male who is lying comfortable in the stretcher. Patient is not in any acute respiratory distress. HEAD AND FACE: No signs of trauma. No ecchymosis, hematomas or skull depressions. No sinus tenderness. EYES: PERRLA, EOMI x 2, No injected conjunctiva, no nystagmus. No photophobia. EARS: Hearing grossly intact. Ear canals and tympanic membranes are within normal limits. MOUTH: Oropharynx within normal limits. NECK: Supple, trachea is midline, no adenopathy, no JVD, no carotid bruit, no c- spine tenderness, neck with full ROM. No meningeal signs, no Kernig's or brudzinskis signs. CHEST: Symmetric, no tenderness at palpation. LUNGS: Clear to auscultation bilaterally. No wheezing or crackles. CVS: Regular rate and rhythm, S1 and S2 present, no murmurs or gallops appreciated. ABDOMEN: Soft, non-tender. No signs of distention. No rebound, no guarding, and no masses palpated. Bowel sounds are normal. EXTREMITIES: FROM in all major joints, no edema, no cyanosis or clubbing. NEURO: Alert and oriented x 3. No acute neurological deficits. Speech is normal and follows commands. SKIN: Dry and warm. GCS: 15. Triage Information Reviewed: Yes Vital Signs On Initial Exam: Initial Vitals Temp Pulse Resp BP Pulse Ox 98.1 F 71 16 126/82 98 07/23/19 16:27 07/23/19 16:27 07/23/19 16:27 07/23/19 16:27 07/23/19 16:27 Vital Signs Reviewed: Yes Procedures - Sedation Patient Received Moderate/Deep Sedation with Procedure: No Diagnostics - Vital Signs Vital Signs Temp Pulse Resp BP Pulse Ox 07/23/19 16:27 98.1 F 71 16 126/82 98 - Laboratory Result Diagrams: 07/23/19 17:21 07/23/19 17:21 Lab Statement: Any lab studies that have been ordered have been reviewed, and results considered in the medical decision making process. - EKG 1751 Cardiac Rate: NL - 65 bpm EKG Rhythm: Sinus Rhythm Summary of EKG Findings: EKG at 1751 reveals NSR at [address] elevation in V2 measuring less than 1mm. ED physician has reviewed and interpreted this EKG. Re-Evaluation - Re-Evaluation First Eval Re-Evaluation Time: 18:58 Change: Unchanged Comment: We discussed all results and plan for discharge. Course/Dx - Course Assessment/Plan: Patient is a 24 y/o M clonic-seizures with chief complaint of seizure with body rocking, screaming, and confusion occurring around 1400 today following sleep disturbance over the last few days and possible missed dose of Depakote last night. Blood work without any significant abnormality except for glucose of 100. Valproic acid is <13. In the ED course the patient is alert and oriented 3. Patient has no acute neurological focal deficits. I discussed my physical exam and findings with Dr. Anderson who recommends for the patient Depakote 1000 mg tonight, 1000 mg tomorrow morning, and then he will continue taking his medication as scheduled. At this point, I discussed all the findings and test results with the patient. He was instructed to return to the emergency room immediately if any of the symptoms return or worsen. Patient understands and agrees. Neurological exam before discharge: Patient is alert and oriented x 3. No acute neurological deficits. Patient's vital signs are stable. Patient is to follow up with PCP in the next 2 3 days. They understand and agree. Plan of care was discussed with the patient and patient understands and agrees with the plan of care. All questions were answered at patient satisfaction. There were no further complaints or concerns. - Diagnoses Provider Diagnoses: Seizure - Physician Notifications Discussed Care Of Patient With: Chris Anderson - neurology Time Discussed With Above Provider: 18:56 Instructed by Provider To: Other - I discussed the patients case with Dr. Anderson. He recommends one extra dose of Depakote tonight and tomorrow morning, and then to resume normal schedule of medication. Discharge ED - Sign-Out/Discharge Documenting (check all that apply): Patient Departure - Patient will be discharged home. - Discharge Plan Condition: Stable Disposition: HOME Patient Education Materials: Nonepileptic Seizures (DC) Referrals: Zak Santamaria MD [Primary Care Provider] - 3 Days Bill Franklin MD [Medical Doctor] - 3 Days Additional Instructions: Take an extra dose of your Depakote tonight, and one extra dose tomorrow morning , then continue with your medication as prescribed. Follow up with your primary care provider and Dr. Franklin in 2-3 days. Return to the emergency department for any new or worsening symptoms. - Billing Disposition and Condition Condition: STABLE Disposition: Home - Attestation Statements Document Initiated by Keely: Yes Documenting Scribe: Maria A Leos Provider For Whom Keely is Documenting (Include Credential): Dr. Cesar Aranda MD Scribe Attestation: IMaria A scribed for Dr. Cesar Aranda MD on 07/24/19 at 0908. Scribe Documentation Reviewed: Yes Provider Attestation: The documentation as recorded by the Maria A rodriguez accurately reflects the service I personally performed and the decisions made by me, Dr. Cesar Aranda MD Status of [place] Document: Viewed
--- OUTSIDE RECORDS SUMMARY | 2019-07-23 17:30 | XMS REPORT | Continuity of Care Document ---
:1995 External Reference #:[id number] Author Name Olivier Tran MD Address [address] [place] [address] Problems Active Problems Provider Date Gastroesophageal reflux disease Zak Santamaria M.D. Onset: 09/04/2017 Acute gastritis Zak Santamaria M.D. Onset: 09/04/2017 Social History Type Date Description Comments Sex Unknown Tobacco Use Start: Unknown Current Cigarette Smoker 1/2 Pack Daily ETOH Use Rare Exercise Type/Frequency Exercises sporadically Allergies, Adverse Reactions, Alerts Description No Known Drug Allergies Medications Active Medications SIG Qnty Indications Ordering Provider Date Depakote ER 2 by mouth every Unknown 500mg Tablets hs ER 24HR Immunizations CPT Code Status Date Vaccine Lot # [id number] Given 03/19/2010 Tdap Tetanus, W Pertussis [id number] 43685 Given 11/22/1998 MMR Virus Immunization 28060 Given 11/22/1998 DTaP Immunization 54361 Given 11/19/1998 (IPV) Inactive Poliovirus Vaccine 00373 Given 01/08/1996 Varicella (Chicken Pox) Immunization 72841 Given 01/08/1996 DTaP Immunization 17712 Given 12/18/1995 MMR Virus Immunization 40254 Given 12/18/1995 Hib PRP-T Conjugate 4 Dose Schedule 46039 Given 1994 Hib PRP-T Conjugate 4 Dose Schedule 90611 Given 1994 DTaP Immunization 99128 Given 1994 (IPV) Inactive Poliovirus Vaccine 21910 Given 1994 Hepatitis B Immunization, -19 Years 67311 Given 1994 DTaP Immunization 46324 Given 1994 (IPV) Inactive Poliovirus Vaccine 02290 Given 1994 Hib PRP-T Conjugate 4 Dose Schedule 40960 Given 1994 (IPV) Inactive Poliovirus Vaccine 62829 Given 1994 DTaP Immunization 76895 Given 1994 Hepatitis B Immunization, -19 Years 39994 Given 1994 Hib PRP-T Conjugate 4 Dose Schedule Vital Signs Date Vital Result Comment 06/22/2019 8:19pm BP Systolic 122 mmHg BP Diastolic 78 mmHg Heart Rate 82 /min Body Temperature 98.2 F Respiratory Rate 16 /min Height 65.5 inches 5'5.50" Weight 205.00 lb BMI (Body Mass Index) 33.6 kg/m2 09/04/2017 1:04pm BP Systolic 120 mmHg BP Diastolic 80 mmHg Heart Rate 72 /min Body Temperature 97.3 F Respiratory Rate 16 /min Height 65.5 inches 5'5.50" Weight 222.38 lb BMI (Body Mass Index) 36.4 kg/m2 Results Test Date Facility Test Result H/L Range Note Laboratory test 04/01/2019 [facility] [place] Clotest SEE RESULT 1 finding BELOW Laboratory test 04/01/2019 [facility] [place] Surgical SEE RESULT 2 finding Pathology BELOW CBC Auto Diff 02/08/2019 [facility] [place] White Blood 8.1 10^3/uL Normal 3.5-10.8 Count Red Blood Count 5.27 10^6/uL Normal 4.18-5.48 Hemoglobin 16.7 g/dL Normal 14.0-18.0 Hematocrit 47 % High 36-46 Mean Corpuscular Volume 90 fL Normal 80-94 Mean Corpuscular Hemoglobin 32 pg High 27-31 Mean Corpuscular HGB Conc 35 g/dL Normal 31-36 Red Cell Distribution Width 13 % Normal 10.5-15 Platelet Count 216 10^3/uL Normal 150-450 Mean Platelet Volume 9.4 fL Normal 7.4-10.4 Abs Neutrophils 5.8 10^3/uL Normal 1.5-7.7 Abs Lymphocytes 1.7 10^3/uL Normal 1.0-4.8 Abs Monocytes 0.6 10^3/uL Normal 0-0.8 Abs Eosinophils 0 10^3/uL Normal 0-0.6 Abs Basophils 0 10^3/uL Normal 0-0.2 Abs Nucleated RBC 0 10^3/uL Granulocyte % 71.1 % Lymphocyte % 21.1 % Monocyte % 7.6 % Eosinophil % 0 % Basophil % 0.2 % Nucleated Red Blood Cells % 0.1 Laboratory test finding 02/08/2019 [facility] [place] Lactic Acid 0.8 mmol/L Normal 0.5- 2.0 3 Comp Metabolic Panel 02/08/2019 [facility] [place] Sodium 139 mmol/L Normal 135-145 Potassium 3.6 mmol/L Normal 3.5-5.0 Chloride 106 mmol/L Normal 101-111 Co2 Carbon Dioxide 21 mmol/L Low 22-32 Anion Gap 12 mmol/L High 2-11 Calcium 8.9 mg/dL Normal 8.6-10.3 Albumin 4.6 g/dL Normal 3.2-5.2 Total Bilirubin 0.80 mg/dL Normal 0.2-1.0 Glucose 125 mg/dL High 70-100 Blood Urea Nitrogen 10 mg/dL Normal 6-24 Creatinine 0.87 mg/dL Normal 0.67-1.17 BUN/Creatinine Ratio 11.5 Normal 8-20 Total Protein 7.2 g/dL Normal 6.4-8.9 Globulin 2.6 g/dL Normal 2-4 Albumin/Globulin Ratio 1.8 Normal 1-3 Alkaline Phosphatase 36 U/L Normal 34-104 Alt 64 U/L High 7-52 Ast 26 U/L Normal 13-39 Egfr Non- 106.9 >60 Egfr 129.4 >60 4 Laboratory test finding 02/08/2019 [facility] [place] Lipase 40 U/L Normal 11.0-82.0 C Reactive Protein < 1.00 mg/L Normal <8.01 CBC Auto Diff 02/06/2019 [facility] [place] White Blood Count 7.7 10^3/uL Normal 3.5- 10.8 Red Blood Count 5.35 10^6/uL Normal 4.18-5.48 Hemoglobin 17.0 g/dL Normal 14.0-18.0 Hematocrit 48 % High 36-46 Mean Corpuscular Volume 90 fL Normal 80-94 Mean Corpuscular Hemoglobin 32 pg High 27-31 Mean Corpuscular HGB Conc 35 g/dL Normal 31-36 Red Cell Distribution Width 14 % Normal 10.5-15 Platelet Count 213 10^3/uL Normal 150-450 Mean Platelet Volume 8.9 fL Normal 7.4-10.4 Abs Neutrophils 5.0 10^3/uL Normal 1.5-7.7 Abs Lymphocytes 1.7 10^3/uL Normal 1.0-4.8 Abs Monocytes 1.0 10^3/uL High 0-0.8 Abs Eosinophils 0 10^3/uL Normal 0-0.6 Abs Basophils 0 10^3/uL Normal 0-0.2 Abs Nucleated RBC 0 10^3/uL Granulocyte % 65.0 % Lymphocyte % 22.0 % Monocyte % 12.5 % Eosinophil % 0.3 % Basophil % 0.2 % Nucleated Red Blood Cells % 0 Comp Metabolic Panel 02/06/2019 [facility] Sodium 140 mmol/L Normal 135-145 Potassium 3.4 mmol/L Low 3.5-5.0 Chloride 101 mmol/L Normal 101-111 Co2 Carbon Dioxide 27 mmol/L Normal 22-32 Anion Gap 12 mmol/L High 2-11 Glucose 119 mg/dL High 70-100 Blood Urea Nitrogen 13 mg/dL Normal 6-24 Creatinine 0.95 mg/dL Normal 0.67-1.17 BUN/Creatinine Ratio 13.7 Normal 8-20 Calcium 9.4 mg/dL Normal 8.6-10.3 Total Protein 7.1 g/dL Normal 6.4-8.9 Albumin 4.5 g/dL Normal 3.2-5.2 Globulin 2.6 g/dL Normal 2-4 Albumin/Globulin Ratio 1.7 Normal 1-3 Total Bilirubin 0.80 mg/dL Normal 0.2-1.0 Alkaline Phosphatase 40 U/L Normal 34-104 Alt 54 U/L High 7-52 Ast 22 U/L Normal 13-39 Egfr Non- 96.6 >60 Egfr 116.9 >60 5 Laboratory test 02/06/2019 [facility] [place] Lipase 37 U/L Normal 11.0-82.0 finding CBC Electronic a 01/12/2019 [facility](fma) WBC 7.3 x10^3/UL 4.0- 10.0 RBC 5.35 x10^6/UL 3.93-6.00 HGB 16.9 g/dL 12.0-17.0 HCT 49 % 35-50 MCV 91.4 fL 80.0-95.0 MCH 31.6 pg 25.6-32.2 MCHC 34.6 g/dL 32.2-36.0 RDW-CV 12.5 % 11.6-14.4 PLT 220 x10^3/UL 163-400 MPV 10.9 fL 9.4-12.4 [place]# 5.04 x10^3/UL 1.56-6.13 Lymph# 1.56 x10^3/UL 1.18-3.74 [place]# 0.58 x10^3/UL 0.24-0.82 Eos # 0.0 x10^3/UL 0.0-0.5 Baso # 0.02 x10^3/UL 0.01-0.08 [place]% 69.3 % 34.0-70.0 Lymph % 21.5 % 20.0-52.0 [place]% 8.0 % 5.0-12.0 Eos% 0.6 % Low 0.7-7.0 Baso% 0.3 % 0.1-1.2 Comprehensive Metabolic 01/12/2019 [facility](fma) Sodium 146 mEq/L 134-149 Prof Potassium 3.9 mEq/L 3.6-5.5 Chloride 105 mEq/L 94-112 Carbon Dioxide 26 mEq/L 21-32 Glucose 113 mg/dL High 70-105 BUN 13 mg/dL 6-26 Creatinine 0.9 mg/dL 0.6-1.4 BUN/Creat Ratio 14.4 CALC 8.0-36.0 Calcium 9.2 mg/dL 8.6-10.2 Total Protein 7.6 g/dL 6.4-8.3 Albumin 5.2 g/dL 3.8-5.5 Globulin 2.4 g/dL 2.0-4.8 A/G Ratio 2.2 CALC 0.6-2.3 Alk. Phosphatase 47 U/L 22-95 Alt (SGPT) 50 U/L High 7-35 Ast (Sgot) 25 U/L 5-34 Total Bilirubin 0.7 mg/dL 0.2-1.3 GFR Non- >60 ml/min/1.73m^ >=60 GFR >60 ml/min/1.73m^ >=60 Laboratory test 01/12/2019 [facility] Valproic Acid 47 ug/mL Low 50-100 6, 7 finding [address] [address] (316)- - 1 SEE RESULT BELOW Name: CONOR KIRAN : [address]: Dhruv Burciaga MD Acct: [id number] Unit: [id number] AGE: 24 Location: ENDO Re04/01/19 SEX: M Status: REG REF SPEC: [id number] SELENE: 04/01/[address] [facility] [address]: Dhruv Burciaga MD REQ: [id number] RECD: 04/01/19 STATUS: AMBER DENSON DR: Zak Santamaria MD _ SOURCE: GAS ANTRUM SPDESC: ORDERED: Clotest Procedure Result Reported Site Clotest Final 04/02/19- 0800 ML Clotest Negative * - Main Lab . END OF REPORT DEPARTMENT OF PATHOLOGY, [address] [place] [address] Brooks Rodriguez M.D. Director [facility] # [id number] 2 SEE RESULT BELOW Name: CONOR KIRAN : [address]: Dhruv Burciaga MD Acct: [id number] Unit: [id number] AGE: 24 Location: ENDO Re04/01/19 SEX: M Status: DEP REF SPEC: [id number] SELENE: 04/01/[address] [facility] [address]: Dhruv Burciaga MD REQ: [id number] RECD: 04/01/195 STATUS: DIAMOND DENSON DR: Zak Santamaria MD _ ORDERED: LEVEL 4/2 FINAL DIAGNOSIS 1. Small bowel, third portion of duodenum, biopsy: -- Small bowel mucosa with normal villous architecture and no significant pathologic abnormality. 2. Stomach, greater curvature, biopsies: -- Gastric oxyntic gland mucosa with minimal acute superficial chronic inflammation. -- No active gastritis nor Helicobacter pylori-like organisms identified. CLINICAL HISTORY Screening/Surveillance for malignancy in asymptomatic patient. POST-OPERATIVE DIAGNOSIS EGD: larynx-narrow; esophagus-normal, esophagogastric junction 39, loose, minimal irritation; stomach-mild granular erythema, no erosions; duodenum-normal; conclusion/plan: loose esophagogastric, gastritis, recurrent nausea and vomiting- multifactorial GROSS DESCRIPTION 1. The specimen is received in formalin labeled, Third Portion Duodenum Biopsies, and consists of three brian-red irregular to polypoid soft tissue fragments ranging from 0.3 x 0.3 x 0.2 cm to 0.5 x 0.2 x 0.2 cm which are entirely submitted in one cassette. 2. The specimen is received in formalin labeled, Greater Curvature Biopsies (Gastric), and consists of two brian-pink irregular to polypoid soft tissue fragments measuring 0.5 x 0.2 x CONTINUED ON NEXT PAGE DEPARTMENT OF PATHOLOGY, [address] [place] [address] Brooks Rodriguez M.D. Director [place] # [id number] RUN DATE: 04/04/19 [facility] LAB LIVE PAGE 2 Patient: CONOR KIRAN [id number] (Continued) GROSS DESCRIPTION (Continued) 0.2 cm and 0.5 x 0.3 x 0.3 cm which are entirely submitted in one cassette. Signed by and Reported on: Brooks Rodriguez MD 1219 END OF REPORT DEPARTMENT OF PATHOLOGY, [address] [place] [address] Brooks Rodriguez M.D. Director [facility] # [id number] 3 [facility] Severe Sepsis and Septic Shock Management Bundle Measure requires all lactic acids initially measuring >2.0 mmol/L be repeated. 4 Because ethnic data is not always readily available, this report includes an eGFR for both -Americans and non- Americans. The National Kidney Disease Education Program (NKDEP) does not endorse the use of the MDRD equation for patients that are not between the ages of 18 and 70, are , have extremes of body size, muscle mass, or nutritional status, or are non- or non-. According to the National Kidney Foundation, irrespective of diagnosis, the stage of the disease is based on the level of kidney function: Stage Description GFR(mL/min/1.73 m(2)) 1 Kidney damage with normal or decreased GFR 90 2 Kidney damage with mild decrease in GFR 60-89 3 Moderate decrease in GFR 30-59 4 Severe decrease in GFR 15-29 5 Kidney failure <15 (or dialysis) 5 Because ethnic data is not always readily available, this report includes an eGFR for both -Americans and non- Americans. The National Kidney Disease Education Program (NKDEP) does not endorse the use of the MDRD equation for patients that are not between the ages of 18 and 70, are , have extremes of body size, muscle mass, or nutritional status, or are non- or non-. According to the National Kidney Foundation, irrespective of diagnosis, the stage of the disease is based on the level of kidney function: Stage Description GFR(mL/min/1.73 m(2)) 1 Kidney damage with normal or decreased GFR 90 2 Kidney damage with mild decrease in GFR 60-89 3 Moderate decrease in GFR 30-59 4 Severe decrease in GFR 15-29 5 Kidney failure <15 (or dialysis) 6 1 pour off serum from red top tube 7 Detection Limit = 4 <4 indicates None Detected Toxicity may occur at levels of 100-500. Measurements of free unbound valproic acid may improve the assess- ment of clinical response. Procedures Description No Information Available Medical Devices Description No Information Available Encounters Description No Information Available Assessments Date Code Description Provider 06/22/2019 K62.89 Other specified diseases of anus and Olivier Tran MD rectum 01/12/2019 Z79.899 Other snf (current) drug therapy Zak Santamaria M.D. Plan of Treatment 06/22/2019 - Olivier Tran MDK62.89 Other specified diseases of anus and rectumAllComments:Medication Management Patient Understands medications he' s taking? Yes No Are there Barriersto Adherence? Yes No Has the patient been asked about herbal supplements and therapies, and OTC meds? Yes No Functional Status Description No Information Available Mental Status Description No Information Available Referrals Description No Information Available
[2019-07-23 17:31] LABS: ABS Eosinophils 0.1 10^3/ul (0-0.6); ABS Lymphocytes 2.2 10^3/ul (1.0-4.8); ABS Monocytes 0.6 10^3/ul (0-0.8); ABS Neutrophils 4.3 10^3/ul (1.5-7.7); Eosinophil % 1.8 %; Hematocrit 46 % (42-52); Mean Corpuscular HGB Conc 35 g/dL (31-36); Mean Corpuscular Hemoglobin 32 pg (27-31); Mean Corpuscular Volume 91 fL (80-94); Mean Platelet Volume 9.1 fL (7.4-10.4); Platelet Count 182 10^3/uL (150-450); Red Blood Count 5.02 10^6 /uL (4.18-5.48); Red Cell Distribution Width 13 % (10-15); White Blood Count 7.2 10^3/uL (3.5-10.8)
[2019-07-23 17:35] LABS: INR 1.03 (0.82-1.09)
[2019-07-23 17:47] LABS: ALT 41 U/L (7-52); AST 22 U/L (13-39); Albumin 4.5 g/dL (3.2-5.2); Albumin/Globulin Ratio 1.9 (1-3); Alkaline Phosphatase 44 U/L (34-104); Anion Gap 7 mmol/L (2-11); BUN/Creatinine Ratio 18.4 (8-20); Blood Urea Nitrogen 18 mg/dL (6-24); CO2 Carbon Dioxide 25 mmol/L (22-32); Calcium 9.1 mg/dL (8.6-10.3); Chloride 107 mmol/L (101-111); EGFR African American 112.8 (>60); EGFR Non-African American 93.2 (>60); Globulin 2.4 g/dL (2-4); Glucose 102 mg/dL (70-100); Potassium 3.6 mmol/L (3.5-5.0); Sodium 139 mmol/L (135-145); Total Protein 6.9 g/dL (6.4-8.9)
[2019-07-23 18:52] LABS: Alcohol < 10 mg/dL (<10)
[2019-07-23 19:24] VITALS: BP 124/72
[2019-07-23] MEDS ORDERED: Divalproex ER TAB(*) 500 MG PO SCH (21:00)
== END 2019-07-23 19:22 | disposition home or self-care (01) ==
LOC: ED 16:24
DX: R56.9 Unspecified convulsions (principal); F17.210 Nicotine dependence, cigarettes, uncomplicated
CPT/HCPCS: 36415; 80053; 80164; 80320; 83605; 83735; 85025; 85610; 93005; 99283; A9270-GY; G0480